=== PATIENT | female | born 1975 | race Caucasian/White ===

== ENCOUNTER 2016-05-21 19:49 | Emergency (ER) | payer OTHER ==
[2016-05-21 21:59] LABS: HEMOGLOBIN 14.3 gm/dl (12.3-15.3); RED BLOOD COUNT 4.72 M/UL (4.00-5.10)
[2016-05-21 22:16] LABS: BUN/CREATININE RATIO 27 (0-10)
== END 2016-05-22 00:55 | disposition home or self-care (01) ==
LOC: ER1 19:49
PROVIDERS: Family Medicine
DX: E11.649 Type 2 diabetes mellitus with hypoglycemia without coma (principal); E86.0 Dehydration; R31.9 Hematuria, unspecified; F17.200 Nicotine dependence, unspecified, uncomplicated; Z88.0 Allergy status to penicillin; Z79.4 Long term (current) use of insulin
CPT/HCPCS: 36415; 71010; 80053; 81001; 82009; 82550; 82553; 82962; 83874; 84484; 85025; 87086; 93005; 96361; 96374; 96375; 99285; J1815; J2405

== ENCOUNTER 2020-06-09 09:02 | Emergency (ER) | payer OTHER ==
[~2020-06-09 09:02] MED LIST: BACTRIM DS TAB1 EACH PO; K-DUR TAB 20 M20 MEQ PO; PERCOCET 5-3251 EACH PO; PREDNISONE20 MG PO; ZOFRAN ODT 4 MG4 MG PO
== END 2020-06-09 09:52 | disposition home or self-care (01) ==
LOC: ER1 09:02
DX: E11.649 Type 2 diabetes mellitus with hypoglycemia without coma (principal); F17.210 Nicotine dependence, cigarettes, uncomplicated; Z90.89 Acquired absence of other organs; Z88.0 Allergy status to penicillin; Z79.4 Long term (current) use of insulin; Z79.899 Other long term (current) drug therapy
CPT/HCPCS: 82962; 99283

== ENCOUNTER 2020-10-21 21:18 | Emergency (ER) | payer OTHER ==
[2020-10-21 21:50] LABS: HEMOGLOBIN 15.3 gm/dl (12.3-15.3); RED BLOOD COUNT 5.01 M/UL (4.00-5.10); WHITE BLOOD COUNT 8.1 K/UL (4.5-11.0)
[2020-10-21 22:12] LABS: BUN/CREATININE RATIO 22 (0-10)
== END 2020-10-21 22:56 | disposition left against medical advice (07) ==
LOC: ER1 21:18
PROVIDERS: Physician Assistant
DX: U07.1 COVID-19 (principal); J20.8 Acute bronchitis due to other specified organisms; E11.65 Type 2 diabetes mellitus with hyperglycemia; Z79.4 Long term (current) use of insulin; Z88.0 Allergy status to penicillin; F17.210 Nicotine dependence, cigarettes, uncomplicated
CPT/HCPCS: 71045; 80053; 82550; 82553; 83874; 83880; 84484; 85025; 93005; 94664; 96374; 99285; J7030; U0002

== ENCOUNTER 2020-12-25 16:01 | Emergency (ER) | payer OTHER ==
[2020-12-25] MEDS ORDERED: AUGMENTIN 875-1 EACH PO (17:10)
[2020-12-25] MEDS ORDERED: ERYTHROMYCIN O3.5 GM OS (17:10)
[2020-12-25] MEDS ORDERED: IBUPROFEN800 MG PO (17:10)
== END 2020-12-25 21:20 | disposition home or self-care (01) ==
LOC: ER1 16:01
DX: S05.02XA Injury of conjunctiva and corneal abrasion without foreign body, left eye, initial encounter (principal); K04.7 Periapical abscess without sinus; M79.89 Other specified soft tissue disorders; M79.641 Pain in right hand; E11.9 Type 2 diabetes mellitus without complications; Z79.84 Long term (current) use of oral hypoglycemic drugs; W01.0XXA Fall on same level from slipping, tripping and stumbling without subsequent striking against object, initial encounter; F17.200 Nicotine dependence, unspecified, uncomplicated
CPT/HCPCS: 73080; 73130; 99283

== ENCOUNTER 2021-08-03 20:45 | Emergency (ER) | payer OTHER ==
[~2021-08-03 20:45] MED LIST changes: +AUGMENTIN 875-1 EACH PO; +ERYTHROMYCIN O3.5 GM OS; +IBUPROFEN800 MG PO
[2021-08-03 21:22] LABS: RED BLOOD COUNT 4.93 M/UL (4.00-5.10); WHITE BLOOD COUNT 16.4 K/UL (4.5-11.0)
[2021-08-03 21:40] LABS: BUN/CREATININE RATIO 12 (0-10)
[2021-08-04] MEDS ORDERED: IBUPROFEN600 MG PO (01:50)
== END 2021-08-04 01:55 | disposition home or self-care (01) ==
LOC: ER1 20:45
PROVIDERS: Physician Assistant
DX: J03.90 Acute tonsillitis, unspecified (principal); E11.9 Type 2 diabetes mellitus without complications; Z79.4 Long term (current) use of insulin; F17.210 Nicotine dependence, cigarettes, uncomplicated; Z88.0 Allergy status to penicillin
CPT/HCPCS: 70491; 80053; 82962; 83605; 85025; 85652; 86140; 86403; 87081; 87880; 96374; 99284; J1885; Q9967

== ENCOUNTER 2021-08-27 17:58 | Inpatient (IN) | payer OTHER ==
[~2021-08-27] VITALS: Ht 172.7 cm; Wt 88.5 kg
[~2021-08-27 17:58] MED LIST changes: +IBUPROFEN600 MG PO
[2021-08-27 18:32] LABS: HEMOGLOBIN 13.6 gm/dl (12.3-15.3); RED BLOOD COUNT 4.56 M/UL (4.00-5.10); WHITE BLOOD COUNT 11.9 K/UL (4.5-11.0)
[2021-08-27 18:57] LABS: BUN/CREATININE RATIO 25 (0-10)
[2021-08-27 20:55] LABS: BUN/CREATININE RATIO 28 (0-10)
[2021-08-27] MEDS ORDERED: IBUPROFEN600 MG PO (21:47)
[2021-08-27] MEDS ORDERED: NOVOLOG 10100 UNITS/ INJ (21:48)
[2021-08-27 23:57] LABS: BUN/CREATININE RATIO 25 (0-10)
--- NOTE | 2021-08-28 00:58 | NUR ---
PT REMOVED NICOTINE PATCH. PT STATED "IT WAS GIVING ME A HEADACHE." PT'S ROOM ALSO SMELLED OF CIGARETTE. PT HAD BEEN UP TO BATHROOM. PT DENIES SMOKING IN THE BATHROOM, STATES "I WAS SMOKING MY VAPE." PT ADVISED ON RISKS OF SMOKING INSIDE HOSPITAL AND OF SMOKING POLICY.
--- NOTE | 2021-08-28 01:23 | NUR ---
PT REQUESTING TO SIGN OUT AMA. PT STATES "SHE FEELS BETTER" AND "I KNOW I'M NOT ACIDOTIC ANY MORE. I FEEL LIKE IT'S OK FOR ME TO GO HOME." PT ADVISED OF RISKS OF SIGNING OUT. PT VERBALIZED UNDERSTANDING. ON-CALL HOSPITALIST, DR DURAN, NOTIFIED OF PT'S INTENTIONS. NO FURTHER ORDERS FROM
[2021-08-29 01:23] LABS: CANDIDA ALBICANS Not Detected (Negative); CANDIDA KRUSEI Not Detected (Negative); CANDIDA TROPICALIS Not Detected (Negative); ESCHERICHIA COLI Not Detected (Negative); HAEMOPHILUS INFLUENZAE Not Detected (Negative); KLEBSIELLA OXYTOCA Not Detected (Negative); KLEBSIELLA PNEUMONIAE Not Detected (Negative); KPC-CARBAPENEM-RESISTANCE GENE Not Detected (Negative); PROTEUS Not Detected (Negative); PSEUDOMONAS AERUGINOSA Not Detected (Negative); SERRATIA MARCESANS Not Detected (Negative); STAPHYLOCOCCUS AUREUS Not Detected (Negative); STREP AGALACTIAE (GROUP B) Not Detected (Negative); STREP PYOGENES (GROUP A) Not Detected (Negative); STREPTOCOCCUS Not Detected (Negative); vanA/B (VANCOMYCIN RESIST GENE Not Detected (Negative)
[2021-08-29 02:47] LABS: STAPHYLOCOCCUS DETECTED (Negative)
== END 2021-08-28 01:25 | disposition left against medical advice (07) | DRG 639 ==
LOC: ER1 17:58 → CDU 19:23 → CCU 20:44
PROVIDERS: Family Medicine; ADMIT Internal Medicine
DX: E11.10 Type 2 diabetes mellitus with ketoacidosis without coma (principal); E86.0 Dehydration; E78.5 Hyperlipidemia, unspecified; R00.0 Tachycardia, unspecified; R74.8 Abnormal levels of other serum enzymes; F17.200 Nicotine dependence, unspecified, uncomplicated; Z90.49 Acquired absence of other specified parts of digestive tract; Z88.0 Allergy status to penicillin; Z79.899 Other long term (current) drug therapy; Z79.4 Long term (current) use of insulin; Z91.14 Patient's other noncompliance with medication regimen
CPT/HCPCS: 71045; 80048; 80053; 80307; 81001; 82009; 82550; 82553; 82803; 82962; 83036; 83605; 83735; 83880; 84100; 84484; 84703; 85025; 87040; 87077; 87150; 93005; 96361; 96374; 96376; 99285; J1650; J3475; U0002